=== PATIENT | male | born 1940 | race Caucasian/White ===

== ENCOUNTER → 2022-10-27 | Outpatient (CLI) | payer OTHER | END | disposition home or self-care (01) | LOC: US 09-21 07:30 | PROVIDERS: ATTEND Nurse Practitioner Family | DX: I73.9 Peripheral vascular disease, unspecified (principal) ==

== ENCOUNTER 2023-01-13 14:20 | Emergency (ER) | payer OTHER ==
[~2023-01-13] VITALS: Wt 68.5 kg
[2023-01-13] MEDS ORDERED: SEPTDS PO (14:46)
== END 2023-01-13 15:03 | disposition home or self-care (01) ==
LOC: ED 14:20
DX: L03.113 Cellulitis of right upper limb (principal)